=== PATIENT | female | born 1945 | race Caucasian/White ===

== ENCOUNTER 2017-01-09 21:16 | Emergency (ER) | payer MEDICARE, MEDICAID ==
--- NOTE | 2017-01-09 23:09 | C.PDOC ---
History Of Present Illness 71 year old female presents to the ED for evaluation of bilateral knee and neck pain that has developed gradually over the past week after sustaining mechanical fall. Patient tripped over step and kneeled down. Patient admits, pain is localized over L>R knees, worse with ambulation. Neck pain is localized , lateral neck, intermittent, aching. Patient denies head injury, LOC, syncope, severe headache, dizziness, visual changes, focal deficits, CP, SOB, abd. pain, UTI sx, saddle anesthesia, incontinence, denies obvious deformity/weakness/ sensory r vascular deficits to B/l LEs. Ambulate to ED for evaluation, not in nay apparent distress. FYI:Records from previous visits to ED review. Pt was seen here on 09/21/[address] C-spine performed with results (+) diffuse severe multi-level DJD. - HPI Time Seen by Provider: 01/09/17 21:58 Chief Complaint (Nursing): Trauma History Per: Patient History/Exam Limitations: no limitations Onset/Duration Of Symptoms: Days Location Of Injury: Right: Knee, Neck, Left: Knee, Neck Past Medical History Reviewed: Historical Data, Nursing Documentation, Vital Signs Vital Signs: Last Vital Signs Temp 98.1 F 01/09/17 21:38 Pulse 76 01/09/17 21:38 Resp 16 01/09/17 21:38 BP Pulse Ox 96 01/10/17 00:11 - Medical History PMH: Anxiety, Arthritis, Asthma, Back Problems, Diabetes, HTN, Hypercholesterolemia - [facility] Procedures MEASURE CARDIAC SAMPL & PRESSURE, BILATERAL, PERC (05/06/16) PLAIN RADIOGRAPHY OF LEFT HEART USING OTHER CONTRAST (05/06/16) PLAIN RADIOGRAPHY OF MULT COR ART USING OTH CONTRAST (05/06/16) Family History: States: Unknown Family Hx - Social History Hx Tobacco Use: No Hx Alcohol Use: No Hx Substance Use: No - Immunization History Hx Tetanus Toxoid Vaccination: Yes Hx Influenza Vaccination: Yes Hx Pneumococcal Vaccination: No Review Of Systems Constitutional: Negative for: Fever, Chills Gastrointestinal: Negative for: Nausea, Vomiting Musculoskeletal: Positive for: Neck Pain, Other (bilateral knee pain ) Neurological: Negative for: Weakness, Confusion Physical Exam - Physical Exam Appears: Well, Non-toxic Skin: Normal Color, Warm, Dry, No Ecchymosis Head: Atraumatic, Normacephalic, No Swelling, No Abrasion Eye(s): bilateral: Normal Inspection Nose: Normal, No Discharge, No Deformity Oral Mucosa: Moist, No Drooling Throat: Normal Neck: Normal, Normal ROM, No Midline Cervical Tenderness, Paracervical Tenderness (diffuse B/L lateral cervical tenderness overlying trapezium muscle extend from occipital area down to B/L upper back. No midline tenderness. No skin changes.), No Step Off Deformity, No Supple Chest: Symmetrical, No Deformity, No Tenderness Cardiovascular: Rhythm Regular Respiratory: Normal Breath Sounds Gastrointestinal/Abdominal: Normal Exam, Soft, No Tenderness Back: Normal Inspection, No Vertebral Tenderness, Paraspinal Tenderness ( diffuse lumbar paraspinal tenderness.) Extremity: Normal ROM (mild discomfort on B/L knees flexion/extension.), Tenderness (L>R diffuse knee tenderness. NO palpable deformity, no ecchymoses, no edema.), No Pedal Edema, No Calf Tenderness, No Deformity, No Swelling Extremity: Bilateral: Atraumatic Neurological/Psych: Oriented x3, Normal Speech, Normal Motor, Normal Sensation, Normal Reflexes ED Course And Treatment O2 Sat by Pulse Oximetry: 96 Pulse Ox Interpretation: Normal - Other Rad C-spine X-Ray: Interpreted by Me, Viewed By Me Interpretation: (+)DJD, no acute fx or sublux Pelvis w/hips B/L X-Ray: Interpreted by Me, Viewed By Me Interpretation: (+)DJD, no acute fx or dislocation B/L knees X-Ray: Interpreted by Me, Viewed By Me Interpretation: (+) L>R DJD, no acute fx or dislocation Progress Note: On re-evaluation, pt is afebrile, hemodynamicaly stable. Non- toxic. AMbulatory in ED with stable gait. Head: AT/NC. Neck: (-) midline tenderness. Lungs: CTA B/L, BS equal B/L. ABd: benign. B/L LEs: Exam c/w B/L knees contusion, no deformiyt, no neurovascular deficits. Neurologicaly intact. Imaging review and appears without acute abnoramlities. Rey wrap applied to left knee. Pt advised. ref. to F/U with PMD and Ortho in 2-3 days for re-eavl. return if any new changes. Disposition Counseled Patient/Family Regarding: Studies Performed, Diagnosis, Need For Followup, Rx Given - Disposition Referrals: [facility] [Outside] Inocencio Vazquez MD [Staff Provider] - Disposition Time: 23:20 Condition: STABLE Additional Instructions: Rey wrap to left knee Light duty to B/L knees, avoid prolong walking Take pain medication as prescribed Follow up with Orthopedist in 2-3 days for re-evaluation. Return to ED if any worsening or new changes. Instructions: Knee Sprain (ED), Cervical Sprain (ED), Fall Prevention for Older Adults (ED) Print Language: CZECH - Clinical Impression Clinical Impression: Cervical strain, Knee contusion, Fall - Scribe Statement The provider has reviewed the documentation as recorded by the Scribe Gayathri Bergeron All medical record entries made by the Scribe were at my direction and personally dictated by me. I have reviewed the chart and agree that the record accurately reflects my personal performance of the history, physical exam, medical decision making, and the department course for this patient. I have also personally directed, reviewed, and agree with the discharge instructions and disposition.
[2017-01-10 00:37] VITALS: BP 137/77; PULSE 70; RESP 20; TEMP 97.9; O2SAT 100
--- NOTE | 2017-01-10 17:13 | RAD ---
PROCEDURE: Bilateral knees dated 01/09/2017. HISTORY: injury COMPARISON: See below TECHNIQUE: Three views of the right and left knees performed. Comparison made with prior radiographs right knee dated 11/04/2015 FINDINGS: The current study reveals no evidence of acute displaced fracture nor dislocation. The osseous structures appear intact. Moderate to significant tricompartmental degenerative joint changes are present most notably affecting the medial and patellofemoral compartments. There are also calcifications seen within the joint space margins sized consistent with chondrocalcinosis ; rule out CPPD. Questionable trace suprapatellar joint effusion. Vascular calcifications are again noted. IMPRESSION: No acute fractures. Moderate to significant tricompartmental degenerative joint changes most notably affecting the medial and patellofemoral compartments. Chondrocalcinosis; rule out CPPD
--- NOTE | 2017-01-10 17:27 | RAD ---
PROCEDURE: Pelvis and bilateral hips dated 01/09/2017 HISTORY: injury COMPARISON: Comparison made with CT scan of the abdomen and pelvis dated 08/08/2016 which image the pelvis and both hips in 3 planes. TECHNIQUE: AP view of the pelvis and both hips as well as frogleg lateral views of the right and left hips performed. FINDINGS: Current study reveals no evidence of acute displaced fracture nor dislocation. The osseous structures are intact. Degenerative changes both hip joints. Calcified fibroid again seen overlying the left aspect of the pelvis. Note made of heterotopic bone changes adjacent to the at inferior margins of both inferior pubic rami left more exuberant than the right. Multilevel degenerative spondylosis of the lumbar spine. IMPRESSION: No acute fracture seen. Degenerative changes both hips of if symptoms persist or occult fracture suspected clinically recommend followup CT scan for further evaluation.
--- NOTE | 2017-01-10 17:47 | RAD ---
PROCEDURE: Cervical spine dated 01/09/2017 HISTORY: injury COMPARISON: TECHNIQUE: Multiple views of the cervical spine performed. Examination is somewhat limited due to incomplete visualization of the C7 segment and poor visualization of the C7-T1 and to a lesser degree C6-C7 disc space levels. FINDINGS: Current study reveals no acute compression fractures no retropulsed fragments. Minor chronic anterior stature loss felt to be related to degenerative spondylosis . There is also mild reversal of the normal cervical lordosis As mentioned above, multilevel degenerative spondylosis most notably affecting C6-C7 and C5-C6 levels include disc space narrowing, endplate eburnation with medium-sized anterolateral and tiny posterior osteophyte formation. . Prevertebral soft tissues unremarkable. IMPRESSION: Limited study. No acute fracture seen. Multilevel degenerative spondylosis as above
== END 2017-01-10 00:37 | disposition home or self-care (01) ==
LOC: C.ER 21:16
DX: S80.02XA Contusion of left knee, initial encounter (principal); S80.01XA Contusion of right knee, initial encounter; S16.1XXA Strain of muscle, fascia and tendon at neck level, initial encounter; W01.0XXA Fall on same level from slipping, tripping and stumbling without subsequent striking against object, initial encounter

== ENCOUNTER 2017-01-19 18:50 | Emergency (ER) | payer MEDICARE, MEDICAID ==
[2017-01-19 18:53] VITALS: BMI 36.6
[2017-01-19 18:57] VITALS: TEMP 98.1
--- NOTE | 2017-01-19 19:50 | C.PDOC ---
History Of Present Illness Patient presents to ER with a complaint of a dull aching neck and chest pain after having dental work done in the morning. Denies any fever, chill, nausea, or vomiting or shortness of breath. Time Seen by Provider: 01/19/17 19:49 Chief Complaint (Nursing): ENT Problem History Per: Patient History/Exam Limitations: no limitations Onset/Duration Of Symptoms: Hrs Current Symptoms Are (Timing): Still Present Severity: Mild Pain Scale Rating Of: 3 Location: neck Reports Recently: Seen In ED Recent travel outside of the [place]: No Additional History Per: Patient Past Medical History Reviewed: Historical Data, Nursing Documentation, Vital Signs Vital Signs: Last Vital Signs Temp 98.1 F 01/19/17 18:54 Pulse 71 01/19/17 20:54 Resp 17 01/19/17 20:54 BP 152/50 H 01/19/17 20:54 Pulse Ox 100 01/19/17 20:54 - Medical History PMH: Anxiety, Arthritis, Asthma, Back Problems, Diabetes, HTN, Hypercholesterolemia - [facility] Procedures MEASURE CARDIAC SAMPL & PRESSURE, BILATERAL, PERC (05/06/16) PLAIN RADIOGRAPHY OF LEFT HEART USING OTHER CONTRAST (05/06/16) PLAIN RADIOGRAPHY OF MULT COR ART USING OTH CONTRAST (05/06/16) Family History: States: No Known Family Hx - Social History Hx Tobacco Use: No Hx Alcohol Use: No Hx Substance Use: No - Immunization History Hx Tetanus Toxoid Vaccination: No Hx Influenza Vaccination: No Hx Pneumococcal Vaccination: No Review Of Systems Constitutional: Negative for: Fever, Chills ENT: Positive for: Other (Neck pain). Negative for: Throat Swelling Cardiovascular: Positive for: Chest Pain (dull aching chest discomfort) Gastrointestinal: Negative for: Nausea, Vomiting Musculoskeletal: Positive for: Neck Pain. Negative for: Back Pain Skin: Negative for: Rash, Lesions, Jaundice, Bruising Neurological: Negative for: Weakness Psych: Negative for: Anxiety Physical Exam - Physical Exam Appears: Well, Non-toxic Skin: Warm, Dry Oral Mucosa: Moist Teeth: Other (missing b/l pre and molars.) Gingiva: No Erythema, No Swelling, No Tender, No Bleeding, No Abscess Neck: Supple Chest: Symmetrical Cardiovascular: Rhythm Regular Respiratory: No Rales, No Rhonchi, No Wheezing Gastrointestinal/Abdominal: Soft, No Tenderness, Other (Obese) Back: Normal Inspection Extremity: Normal ROM Extremity: Bilateral: Atraumatic, Normal Color And Temperature Neurological/Psych: Oriented x3, Normal Speech, Normal Cognition Gait: Steady ED Course And Treatment - Laboratory Results Result Diagrams: 01/19/17 20:32 01/19/17 20:32 ECG: Interpreted By Me, Viewed By Me ECG Rhythm: Sinus Rhythm (70), Nonspecific Changes O2 Sat by Pulse Oximetry: 98 Pulse Ox Interpretation: Normal - Radiology CXR Interpretation: Yes: Other (unchnaged from 09/21/16). No: Infiltrates, Fracture, Pnemothorax Progress Note: EKG, blood work, chest x-ray, and urinalysis ordered. Ecotrin PO administered. 9:20 PM Upon provider reevaluation patient is feeling better, is medically stable, and requires no further treatment in the ED at this time. Patient will be discharged home with Rx for naproxyn . Counseling was provided and all questions were answered regarding diagnosis and need for follow up with the referred clinic. There is agreement to discharge plan. Return if symptoms persist or worsen. Reevaluation Time: 21:18 Reassessment Condition: Improved Disposition Counseled Patient/Family Regarding: Studies Performed, Diagnosis, Need For Followup - Disposition Referrals: Mark Osborn MD [Staff Provider] - Disposition: HOME/ ROUTINE Disposition Time: 19:50 Condition: FAIR Prescriptions: Naproxen [Naprosyn] 1 tab PO BID PRN #25 tab PRN Reason: Pain Instructions: Costochondritis (ED), Cervical Strain (DC) Print Language: BERMUDIAN - Clinical Impression Clinical Impression: Neck pain, Costochondral chest pain - Scribe Statement The provider has reviewed the documentation as recorded by the Scribkevin [place] All medical record entries made by the Julesibkevin were at my direction and personally dictated by me. I have reviewed the chart and agree that the record accurately reflects my personal performance of the history, physical exam, medical decision making, and the department course for this patient. I have also personally directed, reviewed, and agree with the discharge instructions and disposition.
[2017-01-19] MEDS ORDERED: Aspirin 325 mg EC Tablets PO STA (19:52)
[2017-01-19 20:35] LABS: BASO % 0.2 % (0.0-2.0); EOS # 0.1 K/uL (0.0-0.7); EOS % 0.5 % (0.0-4.0); HEMATOCRIT 33.3 % (34.0-47.0); LYMPH # 1.6 K/uL (1.0-4.3); LYMPH % 16.8 % (20.0-40.0); MEAN CELL VOLUME 82.8 fL (81.0-99.0); MEAN CORPUSCULAR HEMOGLOBIN 27.7 pg (27.0-31.0); MEAN CORPUSCULAR HGB CONC 33.4 g/dL (33.0-37.0); MEAN PLATELET VOLUME 7.2 fL (7.2-11.7); MONO # 0.5 K/uL (0.0-0.8); MONO % 5.4 % (0.0-10.0); RED CELL DISTRIBUTION WIDTH 13.5 % (11.5-14.5); WHITE BLOOD COUNT 9.8 K/uL (4.8-10.8)
[2017-01-19] MEDS ORDERED: Aspirin 325 mg EC Tablets PO ONE (20:36)
[2017-01-19 20:43] LABS: CHLORIDE 100 mmol/L (98-107); SODIUM 143 mmol/L (132-148)
[2017-01-19 20:45] LABS: BILIRUBIN,TOTAL 0.2 mg/dL (0.2-1.3); GFR AFRICAN-AMERICAN > 60
[2017-01-19 20:46] LABS: ALB/GLOB RATIO 1.3 (1.0-2.1); ALKALINE PHOSPHATASE 62 U/L (38-126); ALT/SGPT 17 U/L (9-52); AST/SGOT 26 U/L (14-36); BLOOD UREA NITROGEN 22 mg/dL (7-17); CARBON DIOXIDE 26 mmol/L (22-30); GLUCOSE,RANDOM 70 mg/dL (65-105); TOTAL PROTEIN 7.6 g/dL (6.3-8.3)
[2017-01-19 20:47] LABS: CALCIUM 9.3 mg/dl (8.6-10.4)
[2017-01-19 20:52] LABS: RBC URINE < 1 /hpf (0-3); URINE BACTERIA RARE (<OCC); URINE BILIRUBIN NEGATIVE (NEGATIVE); URINE BLOOD NEGATIVE (NEGATIVE); URINE COLOR Straw (YELLOW); URINE GLUCOSE (UA) NORMAL (Normal); URINE KETONE NEGATIVE (NEGATIVE); URINE LEUKOCYTE ESTERASE NEG Leu/uL (Negative); URINE PROTEIN NEGATIVE (NEGATIVE); URINE UROBILINOGEN NORMAL mg/dL (0.2-1.0); WBC URINE < 1 /hpf (0-5)
[2017-01-19 21:34] VITALS: BP 137/40; PULSE 66; RESP 12; O2SAT 100
--- NOTE | 2017-01-20 09:19 | RAD ---
PROCEDURE: CHEST RADIOGRAPH, 1 VIEW HISTORY: chest pain COMPARISON: 09/21/2016 FINDINGS: LUNGS: Mild venous congestion. Patchy opacities in the medial right infrahilar region and left lung base. Upper lobe granulomatous changes. PLEURA: No pneumothorax or pleural fluid seen. CARDIOVASCULAR: Tortuous aorta. OSSEOUS STRUCTURES: Degenerative changes in the spine and shoulders with paravertebral osteophytes. Calcific tendinopathy of the proximal humeri. Suggestion of loose osteochondral bodies in the glenohumeral joint spaces. VISUALIZED UPPER ABDOMEN: Normal. OTHER FINDINGS: None. IMPRESSION: Mild venous congestion. Patchy opacities in the medial right infrahilar region and left lung base. Upper lobe granulomatous changes.
--- NOTE | 2017-01-20 10:45 | CARD ---
APPROVED REPORT EKG Measurement Heart [id number] <Conclusion> Normal sinus rhythm Normal ECG
== END 2017-01-19 21:33 | disposition home or self-care (01) ==
LOC: C.ER 18:50
DX: M54.2 Cervicalgia (principal); R07.89 Other chest pain
CPT/HCPCS: 71010; 80053; 81001; 84484; 85025; 85610; 85730; 93005; 96374; 99285; J1885

== ENCOUNTER 2017-02-11 17:29 | Emergency (ER) | payer MEDICARE, MEDICAID ==
[2017-02-11 17:29] VITALS: BMI 36.6
[2017-02-11 17:40] VITALS: BP 147/75; PULSE 76; RESP 15; TEMP 98.7; O2SAT 99
[2017-02-11] MEDS ORDERED: Bacitracin 500 Units/gm Oint Foilpak UD TOP ONE (17:57)
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
[2017-02-11] MEDS ORDERED: Bacitracin 500 Units/gm Oint Foilpak UD ONE (18:05)
== END 2017-02-11 18:31 | disposition home or self-care (01) ==
LOC: C.ER 17:29
DX: T23.262A Burn of second degree of back of left hand, initial encounter (principal); X15.8XXA Contact with other hot household appliances, initial encounter

== ENCOUNTER 2017-03-10 15:59 | Emergency (ER) | payer MEDICARE, MEDICAID ==
[2017-03-10 15:59] VITALS: BMI 36.6
[2017-03-10 16:12] VITALS: TEMP 98
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
--- NOTE | 2017-03-10 17:23 | C.PDOC ---
History Of Present Illness 72 yr old female presents to the ER with complaints of new onset of left leg pain for 1 day. Patient reports of left lower back pain which radiates to the left leg. States the pain is worse when she is getting up from a sitting position. Denies using any medication for the pain. No trauma, fall, abdominal pain, diarrhea, constipation, dysuria, incontinence, weakness or numbness. NEW ONSET L LEG PAIN SINCE YEST. L LOWER BACK RADIATION L LEG. WORSE WHEN GETTING UP TO STAND. NO TRAUMA. NO ASSOC WEAK. NO PAIN MEDS TRIED. EXAM ++STRAIGHT LEG TEST L LE. NEURO INTACT BACK LIMITED ROM DUE TO PAIN L HIP, ANKLE, FOOT NEG Time Seen by Provider: 03/10/17 16:31 Chief Complaint (Nursing): Trauma History Per: Patient History/Exam Limitations: no limitations Onset/Duration Of Symptoms: Sudden Onset (1 day) Past Medical History Reviewed: Historical Data, Nursing Documentation, Vital Signs Vital Signs: Last Vital Signs Temp 98.0 F 03/10/17 16:08 Pulse 74 03/10/17 16:08 Resp 18 03/10/17 16:08 BP 166/68 H 03/10/17 16:08 Pulse Ox 100 03/10/17 17:46 - Medical History PMH: Anxiety, Arthritis, Asthma, Back Problems, Diabetes, HTN, Hypercholesterolemia - [facility] Procedures MEASURE CARDIAC SAMPL & PRESSURE, BILATERAL, PERC (05/06/16) PLAIN RADIOGRAPHY OF LEFT HEART USING OTHER CONTRAST (05/06/16) PLAIN RADIOGRAPHY OF MULT COR ART USING OTH CONTRAST (05/06/16) Family History: States: No Known Family Hx - Social History Hx Tobacco Use: No Hx Alcohol Use: No Hx Substance Use: No - Immunization History Hx Tetanus Toxoid Vaccination: No Hx Influenza Vaccination: No Hx Pneumococcal Vaccination: No Review Of Systems Except As Marked, All Systems Reviewed And Found Negative. Gastrointestinal: Negative for: Abdominal Pain, Diarrhea, Constipation Genitourinary: Negative for: Dysuria, Incontinence Musculoskeletal: Positive for: Back Pain (Left lower back pain ), Leg Pain ( Left leg pain ) Neurological: Negative for: Weakness, Numbness Physical Exam - Physical Exam Appears: Well, Non-toxic, No Acute Distress Skin: Warm, Dry, No Rash Head: Atraumatic, Normacephalic Back: Straight Leg Raising (Left lower extremity ), Other ((+) Limited ROM due to pain ) Extremity: Normal ROM, Capillary Refill (<2), No Swelling Neurological/Psych: Oriented x3, Normal Speech, Normal Motor ED Course And Treatment O2 Sat by Pulse Oximetry: 100 - Other Rad X-Ray - Left Hip w/ Pelvis X-Ray: Viewed By Me, Read By Radiologist Interpretation: PROCEDURE: Left Hip X-ray Radiographs. The frontal view of the pelvis and frontal/frogleg lateral views of the left hip performed. . . Note examination is limited due to for penetration and visualization of fine bone detail. HISTORY: TRAUMA. COMPARISON: Comparison made with prior radiographs of pelvis and both hips 01/09/2017. FINDINGS: BONES: No definitive radiographic evidence displaced fracture nor dislocation. The left femoral head is appropriately located within the left acetabulum. JOINTS: Mild degenerative joint changes. SOFT TISSUES: Re- demonstrated is what probably represent calcified due to fibroid overlying the left true pelvis. There several small calcific densities again seen overlying the left pubic ramus. Few small calcifications inferior right ramus. . Vascular calcifications are again seen. OTHER FINDINGS: No acute fractures. DJD as described. If symptoms persist or occult fracture suspected clinically consider followup the CT scan and or MRI further evaluation. IMPRESSION: Normal left hip radiographs. X-Ray - Left Ankle X-Ray: Viewed By Me, Read By Radiologist Interpretation: PROCEDURE: Left Ankle Radiographs. HISTORY: TRAUMA. COMPARISON: None available. FINDINGS: BONES: Osseous demineralization limits evaluation for acute fracture lines. No acute displaced fracture. Calcaneal enthesophyte. Heel spur. Calcification at the Achilles insertion site. JOINTS: No dislocation. SOFT TISSUES: Soft tissue swelling. Vascular calcifications. No evidence of radiopaque foreign body. OTHER FINDINGS: None. IMPRESSION: Soft tissue swelling. No acute displaced fracture, dislocation, or significant joint effusion identified.If symptoms persist or if there is clinical concern, x-ray follow-up in 7-10 days should be considered. Osseous demineralization. Additional incidental findings as above. X-Ray - Left Foot X-Ray: Viewed By Me, Read By Radiologist Interpretation: PROCEDURE: Left Foot Radiographs. HISTORY: TRAUMA. COMPARISON: None available. FINDINGS: BONES: Osseous demineralization limits evaluation for acute fracture lines. Degenerative changes. No acute displaced fracture. JOINTS: No dislocation. SOFT TISSUES: Soft tissue swelling. Dense vascular calcifications. No evidence of radiopaque foreign body. OTHER FINDINGS: None. IMPRESSION: Osseous demineralization. Degenerative changes. No acute displaced fracture or dislocation identified. If symptoms persist or if there is continued clinical concern, x-ray follow-up in 7-10 days should be considered. Medical Decision Making Medical Decision Making: PLAN: * X-Ray - Left Ankle, Left Foot, Left Hip w/ Pelvis * Decadron PO * Flexeril PO * Motrin PO Disposition Counseled Patient/Family Regarding: Diagnosis, Need For Followup, Rx Given - Disposition Referrals: YOUR,PMD [Other] [facility] [Outside] Disposition: HOME/ ROUTINE Disposition Time: 17:26 Condition: IMPROVED Prescriptions: Acetaminophen [Tylenol 325mg tab] 650 mg PO Q6 #30 tab Cyclobenzaprine [Flexeril] 10 mg PO TID #15 tab Ibuprofen [Motrin] 400 mg PO QID #30 tab Lidocaine 5% [Lidoderm] 1 ea TD PRN PRN #10 patch PRN Reason: Pain, Moderate (4-7) Instructions: Lumbar Radiculopathy (ED) Print Language: MALAY - Clinical Impression Clinical Impression: Sciatic leg pain - Scribe Statement The provider has reviewed the documentation as recorded by the Alexis Garcia Provider Attestation: All medical record entries made by the Julesibkevin were at my direction and personally dictated by me. I have reviewed the chart and agree that the record accurately reflects my personal performance of the history, physical exam, medical decision making, and the department course for this patient. I have also personally directed, reviewed, and agree with the discharge instructions and disposition.
[2017-03-10] MEDS ORDERED: Lidocaine 5% Patch TD STA (17:25)
--- NOTE | 2017-03-10 17:33 | RAD ---
PROCEDURE: Left Hip X-ray Radiographs. The frontal view of the pelvis and frontal/frogleg lateral views of the left hip performed. . . Note examination is limited due to for penetration and visualization of fine bone detail. HISTORY: TRAUMA COMPARISON: Comparison made with prior radiographs of pelvis and both hips 01/09/2017 FINDINGS: BONES: No definitive radiographic evidence displaced fracture nor dislocation. The left femoral head is appropriately located within the left acetabulum. JOINTS: Mild degenerative joint changes. SOFT TISSUES: Re- demonstrated is what probably represent calcified due to fibroid overlying the left true pelvis. There several small calcific densities again seen overlying the left pubic ramus. Few small calcifications inferior right ramus. . Vascular calcifications are again seen. OTHER FINDINGS: No acute fractures. DJD as described. If symptoms persist or occult fracture suspected clinically consider followup the CT scan and or MRI further evaluation. IMPRESSION: Normal left hip radiographs.
[2017-03-10] MEDS ORDERED: Lidocaine 5% Patch TD ONE (18:11)
--- NOTE | 2017-03-10 18:11 | RAD ---
PROCEDURE: Left Ankle Radiographs. HISTORY: TRAUMA COMPARISON: None available. FINDINGS: BONES: Osseous demineralization limits evaluation for acute fracture lines. No acute displaced fracture. Calcaneal enthesophyte. Heel spur. Calcification at the Achilles insertion site. JOINTS: No dislocation. SOFT TISSUES: Soft tissue swelling. Vascular calcifications. No evidence of radiopaque foreign body. OTHER FINDINGS: None. IMPRESSION: Soft tissue swelling. No acute displaced fracture, dislocation, or significant joint effusion identified.If symptoms persist or if there is clinical concern, x-ray follow-up in 7-10 days should be considered. Osseous demineralization. Additional incidental findings as above.
--- NOTE | 2017-03-10 18:12 | RAD ---
PROCEDURE: Left Foot Radiographs. HISTORY: TRAUMA COMPARISON: None available. FINDINGS: BONES: Osseous demineralization limits evaluation for acute fracture lines. Degenerative changes. No acute displaced fracture. JOINTS: No dislocation. SOFT TISSUES: Soft tissue swelling. Dense vascular calcifications. No evidence of radiopaque foreign body. OTHER FINDINGS: None. IMPRESSION: Osseous demineralization. Degenerative changes. No acute displaced fracture or dislocation identified. If symptoms persist or if there is continued clinical concern, x-ray follow-up in 7-10 days should be considered.
[2017-03-10 18:43] VITALS: BP 135/84; PULSE 78; RESP 16; O2SAT 98
== END 2017-03-10 18:43 | disposition home or self-care (01) ==
LOC: C.ER 15:59
DX: M54.42 Lumbago with sciatica, left side (principal)

== ENCOUNTER 2017-03-17 02:28 | Inpatient (IN) | payer MEDICARE, MEDICAID ==
--- NOTE | 2017-03-17 02:35 | C.PDOC ---
History Of Present Illness A 72 y/o female brought in by EMS for low blood sugar that was taken from home [employer]. Pt notes that she did not feel well and could not get up from the toilet. Pt had a blood sugar of 40 and was given an amp of D50. Pt denies fever, chills , nausea, vomiting, LOC, or dizziness. Time Seen by Provider: 03/17/17 02:34 History Per: Patient History/Exam Limitations: no limitations Onset/Duration Of Symptoms: Hrs Current Symptoms Are (Timing): Still Present Severity: Mild Pain Scale Rating Of: 2 Current Diabetic Medications: Oral Medication Causative (Exacerbating) Factor(s): Other Associated Infectious Symptoms: denies: Cough, Sore Throat Treatment Prior To Provider Evaluation: D50W Given Response To Treatment: Good Response Recent travel outside of the [place]: No Additional History Per: Patient Past Medical History Reviewed: Historical Data, Nursing Documentation, Vital Signs Vital Signs: Last Vital Signs Temp 97.5 F L 03/17/17 02:40 Pulse 71 03/17/17 03:37 Resp 16 03/17/17 03:37 BP 142/55 L 03/17/17 03:37 Pulse Ox 98 03/17/17 05:22 - Medical History PMH: Anxiety, Arthritis, Asthma, Back Problems, Diabetes, HTN, Hypercholesterolemia Denies: Chronic Kidney Disease - [facility] Procedures MEASURE CARDIAC SAMPL & PRESSURE, BILATERAL, PERC (05/06/16) PLAIN RADIOGRAPHY OF LEFT HEART USING OTHER CONTRAST (05/06/16) PLAIN RADIOGRAPHY OF MULT COR ART USING OTH CONTRAST (05/06/16) Family History: States: No Known Family Hx - Social History Hx Tobacco Use: No Hx Alcohol Use: No Hx Substance Use: No - Immunization History Hx Tetanus Toxoid Vaccination: No Hx Influenza Vaccination: No Hx Pneumococcal Vaccination: No Review Of Systems Constitutional: Positive for: Other (Low blood sugar). Negative for: Fever, Chills ENT: Negative for: Throat Pain Cardiovascular: Negative for: Chest Pain, Palpitations Respiratory: Negative for: Shortness of Breath Gastrointestinal: Negative for: Nausea, Vomiting Genitourinary: Negative for: Dysuria Musculoskeletal: Positive for: Arm Pain Skin: Negative for: Rash, Lesions, Jaundice Neurological: Negative for: Weakness, Dizziness, Other (LOC) Psych: Negative for: Anxiety Physical Exam - Physical Exam Appears: Non-toxic, No Acute Distress Skin: Warm, Dry Head: Normacephalic Eye(s): bilateral: Normal Inspection Oral Mucosa: Moist Neck: Trachea Midline, Supple Chest: Symmetrical Cardiovascular: Rhythm Regular Respiratory: No Rales, No Rhonchi, No Wheezing Gastrointestinal/Abdominal: Soft, No Tenderness Back: Normal Inspection Extremity: Normal ROM Extremity: Bilateral: Atraumatic, Normal ROM Neurological/Psych: Oriented x3 (Back to baseline), Normal Speech, Normal Cognition Gait: Steady ED Course And Treatment - Laboratory Results Result Diagrams: 03/17/17 02:56 03/17/17 02:56 ECG: Interpreted By Me, Viewed By Me ECG Rhythm: Sinus Rhythm (81), Nonspecific Changes O2 Sat by Pulse Oximetry: 98 (RA) Pulse Ox Interpretation: Normal - Radiology CXR: Interpreted by Me, Viewed By Me CXR Interpretation: No: Infiltrates, Fracture, Pnemothorax - CT Scan/US CT Head w/o Contrast Other Rad Studies (CT/US): Interpreted By Me, Read By Radiologist CT/US Interpretation: EXAM: CT Head Without Intravenous Contrast. CLINICAL HISTORY: 72 years old, female; Pain; Headache and other: Weakness; Patient HX: 10-13-16. TECHNIQUE: Axial computed tomography images of the head/brain without intravenous contrast. This CT exam. was performed using one or more of the following dose reduction techniques: automated exposure. control, adjustment of the mA and/or kV according to patient size, and/or use of iterative. reconstruction technique. COMPARISON: CT - HEAD W/O CONTRAST 2015 8:49:44 PM. FINDINGS: Brain: Mild atrophy. No intracranial hemorrhage. No mass. Minimal decreased attenuation within. periventricular white matter. No definite edema. Ventricles: No hydrocephalus. Cavum septum pellucidum and vergae. Bones/joints: No acute fracture. Calvarial osteoma. Soft tissues: Unremarkable. Vasculature: Atherosclerotic disease of intracranial arteries. Sinuses: No acute sinusitis. Mastoid air cells: No mastoid effusion. Orbits: Unremarkable as visualized. IMPRESSION: 1. Nonspecific white matter changes. Acute infarction may be CT occult within first 24 hours. If a. focal deficit persists, consider followup CT or MRI for further evaluation. 2. Incidental/non -acute findings are described above. Reevaluation Time: 04:34 Reassessment Condition: Improved Critical Care Time - Critical Care Note Total Time (in mins): 30 Documented critical care: time excludes all time spent performing seperately billable procedures. NIHSS Stroke Scale - Date/Time Evaluation Performed Date Performed: 03/17/17 Time Performed: 02:36 When Was NIHSS Performed: Baseline - How Severe is the Stoke Level of Consciousness: 0=Alert LOC to Questions: 0=Both comments correct LOC to commands: 0=Obeys both correctly Best Gaze: 0=Normal Visual: 0=No visual loss Facial: 0=Normal Motor Arm - Left: 0=No drift Motor Arm - Right: 0=No drift Motor Leg - Left: 0=No drift Motor Leg - Right: 0=No drift Limb Ataxia: 0=Absent Sensory: 0=Normal Best Language: 0=No aphasia Dysarthia: 0=Normal articulation Extinction & Inattention (Neglect): 0=Normal, no object Score: 0 Severity Of Stroke: 0= No Stroke Disposition Discussed With DrRenata: Ayaz Holder Comment: accepted the pt on his service and took over the care at 5:38AM Doctor Will See Patient In The: Hospital Counseled Patient/Family Regarding: Studies Performed, Diagnosis - Disposition Referrals: Non [facility] Provider, [Primary Care Provider] - Disposition: HOSPITALIZED Disposition Time: 02:34 Condition: FAIR - Clinical Impression Clinical Impression: Hypoglycemia - Scribe Statement The provider has reviewed the documentation as recorded by the Scribe Diana flaherty All medical record entries made by the Scribe were at my direction and personally dictated by me. I have reviewed the chart and agree that the record accurately reflects my personal performance of the history, physical exam, medical decision making, and the department course for this patient. I have also personally directed, reviewed, and agree with the discharge instructions and disposition. Decision To Admit - Pt Status Changed To: Hospital Disposition Of: Observation - . Bed Request Type: Regular Admitting Physician: Ayaz Holder Patient Diagnosis: Hypoglycemia
[2017-03-17 02:43] VITALS: BMI 28.3
[2017-03-17 03:00] LABS: BASO % 0.3 % (0.0-2.0); EOS # 0.1 K/uL (0.0-0.7); EOS % 0.8 % (0.0-4.0); HEMATOCRIT 31.7 % (34.0-47.0); LYMPH % 12.8 % (20.0-40.0); MEAN CELL VOLUME 82.9 fL (81.0-99.0); MEAN CORPUSCULAR HEMOGLOBIN 27.3 pg (27.0-31.0); MEAN PLATELET VOLUME 7.5 fL (7.2-11.7); MONO # 0.6 K/uL (0.0-0.8); MONO % 7.3 % (0.0-10.0); RED CELL DISTRIBUTION WIDTH 13.8 % (11.5-14.5); WHITE BLOOD COUNT 7.9 K/uL (4.8-10.8)
[2017-03-17 03:03] LABS: CHLORIDE 99 mmol/L (98-107); SODIUM 137 mmol/L (132-148)
[2017-03-17 03:04] LABS: POTASSIUM 3.9 mmol/L (3.6-5.2)
[2017-03-17 03:06] LABS: ALB/GLOB RATIO 1.3 (1.0-2.1); ALKALINE PHOSPHATASE 69 U/L (38-126); AST/SGOT 30 U/L (14-36); BILIRUBIN,TOTAL 0.5 mg/dL (0.2-1.3); BLOOD UREA NITROGEN 24 mg/dL (7-17); CARBON DIOXIDE 27 mmol/L (22-30); GFR AFRICAN-AMERICAN > 60; TOTAL PROTEIN 6.9 g/dL (6.3-8.3)
[2017-03-17 03:07] LABS: ALT/SGPT 26 U/L (9-52); CALCIUM 9.1 mg/dl (8.6-10.4); GLUCOSE,RANDOM 127 mg/dL (65-105)
--- NOTE | 2017-03-17 03:29 | CT ---
EXAM: CT Head Without Intravenous Contrast CLINICAL HISTORY: 72 years old, female; Pain; Headache and other: Weakness; Patient HX: 08-06-16 TECHNIQUE: Axial computed tomography images of the head/brain without intravenous contrast. This CT exam was performed using one or more of the following dose reduction techniques: automated exposure control, adjustment of the mA and/or kV according to patient size, and/or use of iterative reconstruction technique. COMPARISON: CT - HEAD W/O CONTRAST 05/04/2016 8:49:44 PM FINDINGS: Brain: Mild atrophy. No intracranial hemorrhage. No mass. Minimal decreased attenuation within periventricular white matter. No definite edema. Ventricles: No hydrocephalus. Cavum septum pellucidum and vergae. Bones/joints: No acute fracture. Calvarial osteoma. Soft tissues: Unremarkable. Vasculature: Atherosclerotic disease of intracranial arteries. Sinuses: No acute sinusitis. Mastoid air cells: No mastoid effusion. Orbits: Unremarkable as visualized. IMPRESSION: 1. Nonspecific white matter changes. Acute infarction may be CT occult within first 24 hours. If a focal deficit persists, consider followup CT or MRI for further evaluation. 2. Incidental/non-acute findings are described above.
[2017-03-17 04:31] LABS: RBC URINE 1 /hpf (0-3); URINE BILIRUBIN NEGATIVE (NEGATIVE); URINE BLOOD NEGATIVE (NEGATIVE); URINE COLOR Straw (YELLOW); URINE GLUCOSE (UA) 1+ mg/dL (Normal); URINE KETONE NEGATIVE (NEGATIVE); URINE LEUKOCYTE ESTERASE 1+ Leu/uL (Negative); URINE PROTEIN NEGATIVE (NEGATIVE); URINE UROBILINOGEN NORMAL mg/dL (0.2-1.0); WBC URINE 7 /hpf (0-5)
[2017-03-17] MEDS ORDERED: Dextrose 50% SYRINGE Inj (50 ml) IV STA (04:45)
[2017-03-17] MEDS ORDERED: Dextrose 50% SYRINGE Inj (50 ml) ONE (04:48)
--- NOTE | 2017-03-17 08:31 | RAD ---
PROCEDURE: CHEST RADIOGRAPH, 1 VIEW HISTORY: Diabetic COMPARISON: None available. FINDINGS: LUNGS: Mild venous congestion. PLEURA: No pneumothorax or pleural fluid seen. CARDIOVASCULAR: Normal. OSSEOUS STRUCTURES: Degenerative changes in the spine and shoulders. VISUALIZED UPPER ABDOMEN: Normal. OTHER FINDINGS: None. IMPRESSION: Mild venous congestion.
[2017-03-17] MEDS: Enoxaparin 40 mg Syringe SC SCH (11:44)
[2017-03-17] MEDS: Pantoprazole 40 mg EC Tab PO SCH (11:44)
--- NOTE | 2017-03-17 11:47 | CP.PCM.PN ---
Subjective - Date & Time of Evaluation Date of Evaluation: 03/17/17 Time of Evaluation: 09:00 - Subjective Subjective: PGY2 on medicine Dr. Holder service: Pt seen and examined at bedside this morning. No acute events overnight per RN. Pt complains left foot pain when raising her left leg for several months. Objective - Vital Signs/Intake and Output Vital Signs (last 24 hours): Temp Pulse Resp BP Pulse Ox 98.1 F 80 18 144/63 100 03/17/17 08:18 03/17/17 08:18 03/17/17 08:18 03/17/17 08:18 03/17/17 08:18 - Medications Medications: Current Medications Enoxaparin Sodium (Lovenox) 40 mg SC DAILY [facility] Dextrose (Dextrose 5% In Water) 500 mls @ 60 mls/hr IV .[id number] KIMMIE Stop: 03/17/17 14:49 Last Admin: 03/17/17 07:07 Dose: 60 mls/hr Pantoprazole Sodium (Protonix Ec Tab) 40 mg PO DAILY [facility] - Constitutional Appears: Non-toxic, No Acute Distress - Head Exam Head Exam: NORMAL INSPECTION, NORMOCEPHALIC - Eye Exam Eye Exam: Normal appearance Pupil Exam: NORMAL ACCOMODATION - Respiratory Exam Respiratory Exam: Clear to Ausculation Bilateral, NORMAL BREATHING PATTERN - Cardiovascular Exam Cardiovascular Exam: REGULAR RHYTHM, +S1, +S2. absent: Gallop, Rubs - GI/Abdominal Exam GI & Abdominal Exam: Soft, Normal Bowel Sounds - Neurological Exam Neurological Exam: Alert, Awake, Oriented x3 - Psychiatric Exam Psychiatric exam: Normal Mood - Skin Skin Exam: Intact Assessment and Plan - Assessment and Plan (Free Text) Assessment: Weakness NIHSS score [address] head negative for acute etiologies per report. Likely secondary to hypoglycemia episode. Hypoglycemia Blood sugar was 40 on admission. One amp of D50 was given. Home med Janumet 50-1000mg on hold. D5 @ 60 ml/hr. +LE on UA Repeat UA. Urine culture. Prophylactic measure Protonix, Lovenox, SCD.
[2017-03-17 15:50] LABS: RBC URINE < 1 /hpf (0-3); URINE BACTERIA RARE (<OCC); URINE BILIRUBIN NEGATIVE (NEGATIVE); URINE BLOOD NEGATIVE (NEGATIVE); URINE COLOR Colorless (YELLOW); URINE GLUCOSE (UA) NORMAL (Normal); URINE KETONE NEGATIVE (NEGATIVE); URINE LEUKOCYTE ESTERASE NEG Leu/uL (Negative); URINE PROTEIN NEGATIVE (NEGATIVE); URINE UROBILINOGEN NORMAL mg/dL (0.2-1.0); WBC URINE < 1 /hpf (0-5)
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
[2017-03-17] MEDS: (Novolog) Insulin Aspart, Recombinant 100 u/ml 10 ml vial SC SCH (21:51)
[2017-03-18 07:30] LABS: BASO % 0.3 % (0.0-2.0); EOS # 0.1 K/uL (0.0-0.7); EOS % 1.9 % (0.0-4.0); HEMATOCRIT 31.8 % (34.0-47.0); LYMPH # 1.3 K/uL (1.0-4.3); LYMPH % 18.2 % (20.0-40.0); MEAN CELL VOLUME 82.9 fL (81.0-99.0); MEAN CORPUSCULAR HEMOGLOBIN 27.2 pg (27.0-31.0); MEAN CORPUSCULAR HGB CONC 32.9 g/dL (33.0-37.0); MEAN PLATELET VOLUME 7.5 fL (7.2-11.7); MONO # 0.8 K/uL (0.0-0.8); RED CELL DISTRIBUTION WIDTH 13.8 % (11.5-14.5); WHITE BLOOD COUNT 7.1 K/uL (4.8-10.8)
[2017-03-18 08:01] LABS: CHLORIDE 98 mmol/L (98-107); SODIUM 137 mmol/L (132-148)
[2017-03-18 08:02] LABS: POTASSIUM 4.8 mmol/L (3.6-5.2)
[2017-03-18 08:04] LABS: ALB/GLOB RATIO 1.2 (1.0-2.1); ALKALINE PHOSPHATASE 69 U/L (38-126); AST/SGOT 19 U/L (14-36); BILIRUBIN,TOTAL 0.5 mg/dL (0.2-1.3); BLOOD UREA NITROGEN 22 mg/dL (7-17); CARBON DIOXIDE 30 mmol/L (22-30); GFR AFRICAN-AMERICAN > 60; GLUCOSE,RANDOM 150 mg/dL (65-105); TOTAL PROTEIN 6.8 g/dL (6.3-8.3)
[2017-03-18 08:05] LABS: ALT/SGPT 19 U/L (9-52); CALCIUM 9.1 mg/dl (8.6-10.4)
[2017-03-18] MEDS: (Novolog) Insulin Aspart, Recombinant 100 u/ml 10 ml vial SC SCH ×4 (08:51→21:18)
[2017-03-18] MEDS ORDERED: Pneumococcal 23-Valent Vaccine IM ONE (10:00)
[2017-03-18] MEDS: Enoxaparin 40 mg Syringe SC SCH (10:25)
[2017-03-18] MEDS: Pantoprazole 40 mg EC Tab PO SCH (10:25)
--- NOTE | 2017-03-18 15:50 | CP.PCM.PN ---
Addendum entered and electronically signed by Edmund Rodas DO 03/18/17 16:32: Patient s/p total hysterectomy, will cancel pelvic US. Original Note: <Edmund Rodas - Last Filed: 03/18/17 15:46> Subjective - Date & Time of Evaluation Date of Evaluation: 03/18/17 Time of Evaluation: 09:00 - Subjective Subjective: PGY2 on medicine Dr. Holder service: Pt seen and examined at bedside this morning. Pt complains persistent lower abdominal pain and pelvic pain since she fell last year. She had negative xray and CT for acute etiologies. CT however found possible calcified fibroids. Pt otherwise have no other complaints. Physical therapy recommended TCU. Objective - Vital Signs/Intake and Output Vital Signs (last 24 hours): Temp Pulse Resp BP Pulse Ox 98.3 F 76 19 131/72 97 03/18/17 08:00 03/18/17 11:23 03/18/17 08:00 03/18/17 11:23 03/18/17 08:00 Intake and Output: 03/18/17 03/18/17 06:59 18:59 Intake Total 480 Balance 480 - Medications Medications: Current Medications Acetaminophen (Tylenol 325mg Tab) 650 mg PO Q6 PRN PRN Reason: moderate pain Last Admin: 03/18/17 08:51 Dose: 650 mg Enoxaparin Sodium (Lovenox) 40 mg SC DAILY [facility] Last Admin: 03/18/17 10:25 Dose: 40 mg Insulin Aspart (Novolog) 0 unit SC ACHS [facility] PRN Reason: Protocol Last Admin: 03/18/17 13:55 Dose: 2 unit Pantoprazole Sodium (Protonix Ec Tab) 40 mg PO DAILY [facility] Last Admin: 03/18/17 10:25 Dose: 40 mg - Labs Labs: 03/18/17 07:22 03/18/17 07:22 - Constitutional Appears: Non-toxic, No Acute Distress - Head Exam Head Exam: NORMAL INSPECTION, NORMOCEPHALIC - Eye Exam Eye Exam: Normal appearance - Respiratory Exam Respiratory Exam: Clear to Ausculation Bilateral, NORMAL BREATHING PATTERN - Cardiovascular Exam Cardiovascular Exam: REGULAR RHYTHM, +S1, +S2. absent: Gallop, Rubs - GI/Abdominal Exam GI & Abdominal Exam: Soft, Tenderness (lower abdominal, no rebound), Normal Bowel Sounds - Neurological Exam Neurological Exam: Alert, Awake, Oriented x3 - Psychiatric Exam Psychiatric exam: Normal Mood - Skin Skin Exam: Intact Assessment and Plan - Assessment and Plan (Free Text) Assessment: Weakness NIHSS score [address] head negative for acute etiologies per report. Likely secondary to hypoglycemia episode. Pending TCU. Hypoglycemia Blood sugar was 40 on admission. One amp of D50 was given. Home med Janumet 50-1000mg on hold. D5 @ 60 ml/hr. +LE on UA Repeat UA. Urine culture. Possible fibroid F/U pelvic ultrasound. Prophylactic measure Protonix, Lovenox, SCD. <Ayaz Holder S - Last Filed: 03/18/17 18:56> Objective - Vital Signs/Intake and Output Vital Signs (last 24 hours): Temp Pulse Resp BP Pulse Ox 98.1 F 80 20 148/68 95 03/18/17 18:16 03/18/17 18:16 03/18/17 18:16 03/18/17 18:16 03/18/17 18:16 Intake and Output: 03/18/17 03/18/17 06:59 18:59 Intake Total 240 Balance 240 - Medications Medications: Current Medications Acetaminophen (Tylenol 325mg Tab) 650 mg PO Q6 PRN PRN Reason: moderate pain Last Admin: 03/18/17 08:51 Dose: 650 mg Enoxaparin Sodium (Lovenox) 40 mg SC DAILY [facility] Last Admin: 03/18/17 10:25 Dose: 40 mg Insulin Aspart (Novolog) 0 unit SC ACHS [facility] PRN Reason: Protocol Last Admin: 03/18/17 17:24 Dose: Not Given Pantoprazole Sodium (Protonix Ec Tab) 40 mg PO DAILY [facility] Last Admin: 03/18/17 10:25 Dose: 40 mg Attending/Attestation - Attestation I have personally seen and examined this patient.: Yes I have fully participated in the care of the patient.: Yes I have reviewed all pertinent clinical information, including history, physical exam and plan: Yes Notes (Text): 03/18/17 18:56 caase seen and discusediwt resident adn staff holdantidiabetic med check bs possible dicharge rowdy as ordered may resume po med slowly followup withme tomrow or pmd in 48 hors
--- NOTE | 2017-03-18 23:05 | CARD ---
APPROVED REPORT EKG Measurement Heart [id number] <Conclusion> Normal sinus rhythm Normal ECG
[2017-03-19 06:59] LABS: BASO % 0.3 % (0.0-2.0); EOS # 0.1 K/uL (0.0-0.7); EOS % 2.2 % (0.0-4.0); HEMATOCRIT 30.3 % (34.0-47.0); LYMPH # 1.5 K/uL (1.0-4.3); LYMPH % 24.9 % (20.0-40.0); MEAN CELL VOLUME 82.3 fL (81.0-99.0); MEAN CORPUSCULAR HEMOGLOBIN 27.9 pg (27.0-31.0); MEAN CORPUSCULAR HGB CONC 33.9 g/dL (33.0-37.0); MEAN PLATELET VOLUME 7.5 fL (7.2-11.7); MONO # 0.8 K/uL (0.0-0.8); MONO % 13.7 % (0.0-10.0); RED CELL DISTRIBUTION WIDTH 13.9 % (11.5-14.5); WHITE BLOOD COUNT 6.1 K/uL (4.8-10.8)
[2017-03-19 07:18] LABS: CHLORIDE 99 mmol/L (98-107); POTASSIUM 4.3 mmol/L (3.6-5.2); SODIUM 138 mmol/L (132-148)
[2017-03-19 07:20] LABS: BILIRUBIN,TOTAL 0.4 mg/dL (0.2-1.3); GFR AFRICAN-AMERICAN > 60
[2017-03-19 07:21] LABS: ALB/GLOB RATIO 1.1 (1.0-2.1); ALKALINE PHOSPHATASE 70 U/L (38-126); ALT/SGPT 14 U/L (9-52); AST/SGOT 18 U/L (14-36); BLOOD UREA NITROGEN 25 mg/dL (7-17); CALCIUM 8.9 mg/dl (8.6-10.4); CARBON DIOXIDE 30 mmol/L (22-30); GLUCOSE,RANDOM 156 mg/dL (65-105); TOTAL PROTEIN 6.8 g/dL (6.3-8.3)
[2017-03-19] MEDS: (Novolog) Insulin Aspart, Recombinant 100 u/ml 10 ml vial SC SCH ×4 (08:11→22:14)
--- NOTE | 2017-03-19 10:23 | CP.PCM.PN ---
<JacquesRamsey - Last Filed: 03/19/17 11:26> Subjective - Date & Time of Evaluation Date of Evaluation: 03/19/17 Time of Evaluation: 07:45 - Subjective Subjective: Medicine Note- Dr. Holder's service Patient was seen and examined at bedside. Patient reports no acute complaints at this time. Patient is aware and understands she will be going to a TCU in a few days. No events overnight, per nursing. Objective - Vital Signs/Intake and Output Vital Signs (last 24 hours): Temp Pulse Resp BP Pulse Ox 97.7 F 93 H 20 161/76 H 95 03/19/17 08:00 03/19/17 08:00 03/19/17 08:00 03/19/17 08:00 03/19/17 08:00 Intake and Output: 03/19/17 03/19/17 06:59 18:59 Intake Total 120 Balance 120 - Medications Medications: Current Medications Acetaminophen (Tylenol 325mg Tab) 650 mg PO Q6 PRN PRN Reason: moderate pain Last Admin: 03/18/17 21:20 Dose: 650 mg Enoxaparin Sodium (Lovenox) 40 mg SC DAILY [facility] Last Admin: 03/18/17 10:25 Dose: 40 mg Insulin Aspart (Novolog) 0 unit SC ACHS [facility] PRN Reason: Protocol Last Admin: 03/19/17 08:11 Dose: 1 unit Pantoprazole Sodium (Protonix Ec Tab) 40 mg PO DAILY [facility] Last Admin: 03/18/17 10:25 Dose: 40 mg - Labs Labs: 03/19/17 06:50 03/19/17 06:50 - Constitutional Appears: Non-toxic, No Acute Distress - Head Exam Head Exam: ATRAUMATIC, NORMAL INSPECTION, NORMOCEPHALIC - Eye Exam Pupil Exam: NORMAL ACCOMODATION - ENT Exam ENT Exam: Mucous Membranes Moist - Respiratory Exam Respiratory Exam: Clear to Ausculation Bilateral, NORMAL BREATHING PATTERN. absent: Prolonged Expiratory Phase, Rales, Rhonchi, Wheezes - Cardiovascular Exam Cardiovascular Exam: REGULAR RHYTHM, +S1, +S2 - GI/Abdominal Exam GI & Abdominal Exam: Soft, Normal Bowel Sounds. absent: Tenderness, Diminished Bowel Sounds, Hypoactive Bowel Sounds, Pulsatile Mass - Neurological Exam Neurological Exam: Alert, Awake, Oriented x3 - Psychiatric Exam Psychiatric exam: Normal Affect, Normal Mood - Skin Skin Exam: Dry, Intact, Normal Color, Warm Assessment and Plan - Assessment and Plan (Free Text) Assessment: Weakness NIHSS score [address] head negative for acute etiologies per report. Likely secondary to hypoglycemia episode. Pending TCU. Hypoglycemia Blood sugar was 40 on admission. One amp of D50 was given. Home med Janumet 50-1000mg on hold. D5 @ 60 ml/hr. +LE on UA UA on 03/17 is negative Urine culture. Prophylactic measure Protonix, Lovenox, SCD. <Ayaz Holder S - Last Filed: 05/29/17 14:59> Objective - Vital Signs/Intake and Output Vital Signs (last 24 hours): Temp Pulse Resp BP Pulse Ox 98.2 F 72 18 181/74 H 99 03/23/17 16:00 03/23/17 16:00 03/23/17 16:00 03/23/17 16:00 03/23/17 16:00 - Labs Labs: 03/23/17 12:05 03/23/17 12:05 Assessment and Plan (1) Abdominal pain Status: Acute (2) Arthritis Status: Acute (3) Arthritis of knee Status: Acute (4) Back pain Status: Acute (5) Burn of hand, second degree Status: Acute (6) Calcific tendinitis of right shoulder Status: Acute (7) Cervical strain Status: Acute (8) Costochondral chest pain Status: Acute (9) Degenerative arthritis Status: Acute (10) Degenerative disc disease, cervical Status: Acute (11) Dizziness Status: Acute (12) Fall Status: Acute (13) Fibroids Status: Acute (14) Headache Status: Acute (15) Hemorrhoids, external without complications Status: Acute (16) Hypoglycemia Status: Acute (17) Knee contusion Status: Acute (18) Left arm pain Status: Acute (19) Lower back pain Status: Acute (20) Mild diastolic dysfunction Status: Acute (21) Neck pain Status: Acute (22) Sciatic leg pain Status: Acute (23) Shoulder fracture, right Status: Acute (24) UTI (urinary tract infection) Status: Acute Attending/Attestation - Attestation I have personally seen and examined this patient.: Yes I have fully participated in the care of the patient.: Yes I have reviewed all pertinent clinical information, including history, physical exam and plan: Yes Notes (Text): Case seen and discussed with the staff and the resident management as agreed
[2017-03-19] MEDS: Pantoprazole 40 mg EC Tab PO SCH (11:45)
[2017-03-19] MEDS: Enoxaparin 40 mg Syringe SC SCH (11:45)
--- NOTE | 2017-03-19 13:16 | CP.PCM.PN ---
Subjective - Date & Time of Evaluation Date of Evaluation: 03/19/17 Time of Evaluation: 07:40 - Subjective Subjective: clinically same Objective - Vital Signs/Intake and Output Vital Signs (last 24 hours): Temp Pulse Resp BP Pulse Ox 97.7 F 93 H 20 161/76 H 95 03/19/17 08:00 03/19/17 08:00 03/19/17 08:00 03/19/17 08:00 03/19/17 08:00 Intake and Output: 03/19/17 03/19/17 06:59 18:59 Intake Total 120 Balance 120 - Medications Medications: Current Medications Acetaminophen (Tylenol 325mg Tab) 650 mg PO Q6 PRN PRN Reason: moderate pain Last Admin: 03/18/17 21:20 Dose: 650 mg Enoxaparin Sodium (Lovenox) 40 mg SC DAILY [facility] Last Admin: 03/19/17 11:45 Dose: 40 mg Insulin Aspart (Novolog) 0 unit SC ACHS [facility] PRN Reason: Protocol Last Admin: 03/19/17 11:45 Dose: 4 unit Pantoprazole Sodium (Protonix Ec Tab) 40 mg PO DAILY [facility] Last Admin: 03/19/17 11:45 Dose: 40 mg - Labs Labs: 03/19/17 06:50 03/19/17 06:50 - Constitutional Appears: Well - Head Exam Head Exam: ATRAUMATIC, NORMAL INSPECTION, NORMOCEPHALIC - Eye Exam Eye Exam: EOMI, Normal appearance, PERRL Pupil Exam: NORMAL ACCOMODATION, PERRL - ENT Exam ENT Exam: Mucous Membranes Moist, Normal Exam - Neck Exam Neck Exam: Full ROM, Normal Inspection. absent: Lymphadenopathy - Respiratory Exam Respiratory Exam: Decreased Breath Sounds - Cardiovascular Exam Cardiovascular Exam: REGULAR RHYTHM, +S1, +S2 - GI/Abdominal Exam GI & Abdominal Exam: Soft, Diminished Bowel Sounds - Rectal Exam Rectal Exam: Deferred Assessment and Plan - Assessment and Plan (Free Text) Plan: awaiting for rehab rowdy same bs better pt ot
[2017-03-20] MEDS: (Novolog) Insulin Aspart, Recombinant 100 u/ml 10 ml vial SC SCH ×4 (07:30→21:48)
[2017-03-20 08:10] LABS: CHLORIDE 101 mmol/L (98-107); POTASSIUM 4.2 mmol/L (3.6-5.2); SODIUM 139 mmol/L (132-148)
[2017-03-20 08:11] LABS: BASO % 0.5 % (0.0-2.0); EOS # 0.1 K/uL (0.0-0.7); EOS % 2.2 % (0.0-4.0); HEMATOCRIT 31.1 % (34.0-47.0); LYMPH # 1.5 K/uL (1.0-4.3); LYMPH % 26.4 % (20.0-40.0); MEAN CELL VOLUME 82.7 fL (81.0-99.0); MEAN CORPUSCULAR HEMOGLOBIN 27.6 pg (27.0-31.0); MEAN CORPUSCULAR HGB CONC 33.3 g/dL (33.0-37.0); MEAN PLATELET VOLUME 7.4 fL (7.2-11.7); MONO # 0.6 K/uL (0.0-0.8); MONO % 10.1 % (0.0-10.0); NRBC % 0.1 % (0.0-2.0); WHITE BLOOD COUNT 5.7 K/uL (4.8-10.8)
[2017-03-20 08:12] LABS: GFR AFRICAN-AMERICAN > 60
[2017-03-20 08:13] LABS: ALB/GLOB RATIO 1.1 (1.0-2.1); ALKALINE PHOSPHATASE 68 U/L (38-126); ALT/SGPT 13 U/L (9-52); AST/SGOT 17 U/L (14-36); BILIRUBIN,TOTAL 0.4 mg/dL (0.2-1.3); BLOOD UREA NITROGEN 18 mg/dL (7-17); CALCIUM 8.8 mg/dl (8.6-10.4); CARBON DIOXIDE 28 mmol/L (22-30); GLUCOSE,RANDOM 184 mg/dL (65-105); TOTAL PROTEIN 6.8 g/dL (6.3-8.3)
[2017-03-20] MEDS: Enoxaparin 40 mg Syringe SC SCH (09:33)
[2017-03-20] MEDS: Pantoprazole 40 mg EC Tab PO SCH (09:33)
--- NOTE | 2017-03-20 14:25 | CP.PCM.PN ---
Subjective - Date & Time of Evaluation Date of Evaluation: 03/20/17 Time of Evaluation: 08:20 - Subjective Subjective: clinically same Objective - Vital Signs/Intake and Output Vital Signs (last 24 hours): Temp Pulse Resp BP Pulse Ox 98.0 F 98 H 20 172/87 H 97 03/20/17 08:27 03/20/17 08:27 03/20/17 08:27 03/20/17 08:27 03/20/17 08:27 Intake and Output: 03/20/17 03/20/17 06:59 18:59 Intake Total 360 Balance 360 - Medications Medications: Current Medications Acetaminophen (Tylenol 325mg Tab) 650 mg PO Q6 PRN PRN Reason: moderate pain Last Admin: 03/19/17 22:13 Dose: 650 mg Enoxaparin Sodium (Lovenox) 40 mg SC DAILY [facility] Last Admin: 03/20/17 09:33 Dose: 40 mg Insulin Aspart (Novolog) 0 unit SC ACHS [facility] PRN Reason: Protocol Last Admin: 03/20/17 11:30 Dose: 3 unit Pantoprazole Sodium (Protonix Ec Tab) 40 mg PO DAILY [facility] Last Admin: 03/20/17 09:33 Dose: 40 mg - Labs Labs: 03/20/17 07:46 03/20/17 07:46 - Constitutional Appears: Well - Head Exam Head Exam: ATRAUMATIC, NORMAL INSPECTION, NORMOCEPHALIC - Eye Exam Eye Exam: EOMI, Normal appearance, PERRL Pupil Exam: NORMAL ACCOMODATION, PERRL - ENT Exam ENT Exam: Mucous Membranes Moist, Normal Exam - Neck Exam Neck Exam: Full ROM, Normal Inspection. absent: Lymphadenopathy - Respiratory Exam Respiratory Exam: Decreased Breath Sounds - Cardiovascular Exam Cardiovascular Exam: REGULAR RHYTHM, +S1, +S2 - GI/Abdominal Exam GI & Abdominal Exam: Soft, Diminished Bowel Sounds - Rectal Exam Rectal Exam: Deferred Assessment and Plan (1) Abdominal pain Status: Acute (2) Arthritis Status: Acute (3) Arthritis of knee Status: Acute (4) Back pain Status: Acute (5) Burn of hand, second degree Status: Acute (6) Calcific tendinitis of right shoulder Status: Acute (7) Cervical strain Status: Acute (8) Costochondral chest pain Status: Acute (9) Degenerative arthritis Status: Acute (10) Degenerative disc disease, cervical Status: Acute (11) Dizziness Status: Acute (12) Fall Status: Acute (13) Fibroids Status: Acute (14) Headache Status: Acute (15) Hemorrhoids, external without complications Status: Acute (16) Hypoglycemia Status: Acute (17) Knee contusion Status: Acute (18) Left arm pain Status: Acute (19) Lower back pain Status: Acute (20) Mild diastolic dysfunction Status: Acute (21) Neck pain Status: Acute (22) Sciatic leg pain Status: Acute (23) Shoulder fracture, right Status: Acute (24) UTI (urinary tract infection) Status: Acute - Assessment and Plan (Free Text) Plan: Continue IV fluid Lovenox NovoLog Protonix
[2017-03-21 07:21] LABS: BASO % 0.4 % (0.0-2.0); EOS # 0.1 K/uL (0.0-0.7); EOS % 2.2 % (0.0-4.0); HEMATOCRIT 30.7 % (34.0-47.0); LYMPH # 1.5 K/uL (1.0-4.3); LYMPH % 22.2 % (20.0-40.0); MEAN CELL VOLUME 82.1 fL (81.0-99.0); MEAN CORPUSCULAR HEMOGLOBIN 27.7 pg (27.0-31.0); MEAN CORPUSCULAR HGB CONC 33.8 g/dL (33.0-37.0); MONO # 0.6 K/uL (0.0-0.8); MONO % 9.5 % (0.0-10.0); RED CELL DISTRIBUTION WIDTH 13.9 % (11.5-14.5); WHITE BLOOD COUNT 6.6 K/uL (4.8-10.8)
[2017-03-21 07:51] LABS: CHLORIDE 101 mmol/L (98-107); SODIUM 139 mmol/L (132-148)
[2017-03-21 07:52] LABS: POTASSIUM 4.2 mmol/L (3.6-5.2)
[2017-03-21 07:54] LABS: ALB/GLOB RATIO 1.1 (1.0-2.1); ALKALINE PHOSPHATASE 67 U/L (38-126); AST/SGOT 17 U/L (14-36); BILIRUBIN,TOTAL 0.5 mg/dL (0.2-1.3); BLOOD UREA NITROGEN 20 mg/dL (7-17); CARBON DIOXIDE 28 mmol/L (22-30); GFR AFRICAN-AMERICAN > 60; TOTAL PROTEIN 6.8 g/dL (6.3-8.3)
[2017-03-21 07:55] LABS: ALT/SGPT 17 U/L (9-52); CALCIUM 8.8 mg/dl (8.6-10.4); GLUCOSE,RANDOM 190 mg/dL (65-105)
[2017-03-21] MEDS: (Novolog) Insulin Aspart, Recombinant 100 u/ml 10 ml vial SC SCH ×4 (08:08→21:39)
[2017-03-21] MEDS: Enoxaparin 40 mg Syringe SC SCH (09:26)
[2017-03-21] MEDS: Pantoprazole 40 mg EC Tab PO SCH (09:26)
--- NOTE | 2017-03-21 12:17 | CP.PCM.PN ---
Subjective - Date & Time of Evaluation Date of Evaluation: 03/21/17 Time of Evaluation: 07:30 - Subjective Subjective: clinically same Objective - Vital Signs/Intake and Output Vital Signs (last 24 hours): Temp Pulse Resp BP Pulse Ox 97.9 F 70 20 159/80 H 98 03/21/17 08:00 03/21/17 08:00 03/21/17 08:00 03/21/17 08:00 03/21/17 08:00 Intake and Output: 03/21/17 03/21/17 06:59 18:59 Intake Total 350 Balance 350 - Medications Medications: Current Medications Acetaminophen (Tylenol 325mg Tab) 650 mg PO Q6 PRN PRN Reason: moderate pain Last Admin: 03/20/17 19:56 Dose: 650 mg Enoxaparin Sodium (Lovenox) 40 mg SC DAILY [facility] Last Admin: 03/21/17 09:26 Dose: 40 mg Insulin Aspart (Novolog) 0 unit SC ACHS [facility] PRN Reason: Protocol Last Admin: 03/21/17 12:12 Dose: 2 unit Pantoprazole Sodium (Protonix Ec Tab) 40 mg PO DAILY [facility] Last Admin: 03/21/17 09:26 Dose: 40 mg - Labs Labs: 03/21/17 07:13 03/21/17 07:13 - Constitutional Appears: Well - Head Exam Head Exam: ATRAUMATIC, NORMAL INSPECTION, NORMOCEPHALIC - Eye Exam Eye Exam: EOMI, Normal appearance, PERRL Pupil Exam: NORMAL ACCOMODATION, PERRL - ENT Exam ENT Exam: Mucous Membranes Moist, Normal Exam - Neck Exam Neck Exam: Full ROM, Normal Inspection. absent: Lymphadenopathy - Respiratory Exam Respiratory Exam: Decreased Breath Sounds - Cardiovascular Exam Cardiovascular Exam: REGULAR RHYTHM, +S1, +S2 - GI/Abdominal Exam GI & Abdominal Exam: Soft, Diminished Bowel Sounds - Rectal Exam Rectal Exam: Deferred Assessment and Plan (1) Abdominal pain Status: Acute (2) Arthritis Status: Acute (3) Arthritis of knee Status: Acute (4) Back pain Status: Acute (5) Burn of hand, second degree Status: Acute (6) Calcific tendinitis of right shoulder Status: Acute (7) Cervical strain Status: Acute (8) Costochondral chest pain Status: Acute (9) Degenerative arthritis Status: Acute (10) Degenerative disc disease, cervical Status: Acute (11) Dizziness Status: Acute (12) Fall Status: Acute (13) Fibroids Status: Acute (14) Headache Status: Acute (15) Hemorrhoids, external without complications Status: Acute (16) Hypoglycemia Status: Acute (17) Knee contusion Status: Acute (18) Left arm pain Status: Acute (19) Lower back pain Status: Acute (20) Mild diastolic dysfunction Status: Acute (21) Neck pain Status: Acute (22) Sciatic leg pain Status: Acute (23) Shoulder fracture, right Status: Acute (24) UTI (urinary tract infection) Status: Acute - Assessment and Plan (Free Text) Plan: Lovenox NovoLog Protonix
[2017-03-22 06:28] LABS: CHLORIDE 100 mmol/L (98-107)
[2017-03-22 06:29] LABS: POTASSIUM 4.3 mmol/L (3.6-5.2); SODIUM 138 mmol/L (132-148)
[2017-03-22 06:31] LABS: ALB/GLOB RATIO 1.2 (1.0-2.1); ALKALINE PHOSPHATASE 80 U/L (38-126); AST/SGOT 16 U/L (14-36); BILIRUBIN,TOTAL 0.4 mg/dL (0.2-1.3); BLOOD UREA NITROGEN 22 mg/dL (7-17); CARBON DIOXIDE 28 mmol/L (22-30); GFR AFRICAN-AMERICAN > 60; GLUCOSE,RANDOM 230 mg/dL (65-105); TOTAL PROTEIN 6.8 g/dL (6.3-8.3)
[2017-03-22 06:32] LABS: ALT/SGPT 16 U/L (9-52); CALCIUM 8.7 mg/dl (8.6-10.4)
[2017-03-22 07:04] LABS: BASO % 0.4 % (0.0-2.0); EOS # 0.2 K/uL (0.0-0.7); EOS % 2.6 % (0.0-4.0); HEMATOCRIT 30.4 % (34.0-47.0); LYMPH # 1.6 K/uL (1.0-4.3); LYMPH % 22.6 % (20.0-40.0); MEAN CELL VOLUME 82.9 fL (81.0-99.0); MEAN CORPUSCULAR HEMOGLOBIN 28.1 pg (27.0-31.0); MEAN CORPUSCULAR HGB CONC 33.9 g/dL (33.0-37.0); MEAN PLATELET VOLUME 7.3 fL (7.2-11.7); MONO # 0.7 K/uL (0.0-0.8); MONO % 9.7 % (0.0-10.0)
[2017-03-22] MEDS: (Novolog) Insulin Aspart, Recombinant 100 u/ml 10 ml vial SC SCH ×4 (07:50→21:46)
[2017-03-22] MEDS: Pantoprazole 40 mg EC Tab PO SCH (11:16)
[2017-03-22] MEDS: Enoxaparin 40 mg Syringe SC SCH (11:16)
--- NOTE | 2017-03-22 18:07 | CP.PCM.PN ---
Subjective - Date & Time of Evaluation Date of Evaluation: 03/22/17 Time of Evaluation: 07:20 - Subjective Subjective: clinically same Objective - Vital Signs/Intake and Output Vital Signs (last 24 hours): Temp Pulse Resp BP Pulse Ox 97.5 F L 75 20 176/73 H 98 03/22/17 15:00 03/22/17 15:00 03/22/17 15:00 03/22/17 15:00 03/22/17 15:00 Intake and Output: 03/22/17 03/22/17 06:59 18:59 Intake Total 400 500 Balance 400 500 - Medications Medications: Current Medications Acetaminophen (Tylenol 325mg Tab) 650 mg PO Q6 PRN PRN Reason: moderate pain Last Admin: 03/22/17 14:06 Dose: 650 mg Enoxaparin Sodium (Lovenox) 40 mg SC DAILY [facility] Last Admin: 03/22/17 11:16 Dose: 40 mg Insulin Aspart (Novolog) 0 unit SC ACHS [facility] PRN Reason: Protocol Last Admin: 03/22/17 17:10 Dose: 3 unit Pantoprazole Sodium (Protonix Ec Tab) 40 mg PO DAILY [facility] Last Admin: 03/22/17 11:16 Dose: 40 mg - Labs Labs: 03/22/17 06:11 03/22/17 06:11 - Constitutional Appears: Well - Head Exam Head Exam: ATRAUMATIC, NORMAL INSPECTION, NORMOCEPHALIC - Eye Exam Eye Exam: EOMI, Normal appearance, PERRL Pupil Exam: NORMAL ACCOMODATION, PERRL - ENT Exam ENT Exam: Mucous Membranes Moist, Normal Exam - Neck Exam Neck Exam: Full ROM, Normal Inspection. absent: Lymphadenopathy - Respiratory Exam Respiratory Exam: Decreased Breath Sounds - Cardiovascular Exam Cardiovascular Exam: REGULAR RHYTHM, +S1, +S2 - GI/Abdominal Exam GI & Abdominal Exam: Soft, Diminished Bowel Sounds - Rectal Exam Rectal Exam: Deferred Assessment and Plan (1) Abdominal pain Status: Acute (2) Arthritis Status: Acute (3) Arthritis of knee Status: Acute (4) Back pain Status: Acute (5) Burn of hand, second degree Status: Acute (6) Calcific tendinitis of right shoulder Status: Acute (7) Cervical strain Status: Acute (8) Costochondral chest pain Status: Acute (9) Degenerative arthritis Status: Acute (10) Degenerative disc disease, cervical Status: Acute (11) Dizziness Status: Acute (12) Fall Status: Acute (13) Fibroids Status: Acute (14) Headache Status: Acute (15) Hemorrhoids, external without complications Status: Acute (16) Hypoglycemia Status: Acute (17) Knee contusion Status: Acute (18) Left arm pain Status: Acute (19) Lower back pain Status: Acute (20) Mild diastolic dysfunction Status: Acute (21) Neck pain Status: Acute (22) Sciatic leg pain Status: Acute (23) Shoulder fracture, right Status: Acute (24) UTI (urinary tract infection) Status: Acute - Assessment and Plan (Free Text) Plan: Lovenox NovoLog Protonix Tylenol
[2017-03-23 07:30] VITALS: TEMP 98.2
[2017-03-23] MEDS: (Novolog) Insulin Aspart, Recombinant 100 u/ml 10 ml vial SC SCH ×2 (07:40→11:42)
[2017-03-23] MEDS ORDERED: Pantoprazole 40 mg EC Tab PO SCH (10:00)
[2017-03-23] MEDS: Pantoprazole 40 mg EC Tab PO SCH (10:23)
[2017-03-23] MEDS: Enoxaparin 40 mg Syringe SC SCH (10:23)
[2017-03-23 12:15] LABS: BASO % 0.6 % (0.0-2.0); EOS # 0.1 K/uL (0.0-0.7); HEMATOCRIT 31.4 % (34.0-47.0); LYMPH # 1.5 K/uL (1.0-4.3); LYMPH % 21.4 % (20.0-40.0); MEAN CELL VOLUME 82.8 fL (81.0-99.0); MEAN CORPUSCULAR HEMOGLOBIN 27.7 pg (27.0-31.0); MEAN CORPUSCULAR HGB CONC 33.5 g/dL (33.0-37.0); MEAN PLATELET VOLUME 7.3 fL (7.2-11.7); MONO # 0.6 K/uL (0.0-0.8); MONO % 8.3 % (0.0-10.0); RED CELL DISTRIBUTION WIDTH 13.8 % (11.5-14.5); WHITE BLOOD COUNT 7.1 K/uL (4.8-10.8)
[2017-03-23 12:48] LABS: CHLORIDE 99 mmol/L (98-107)
[2017-03-23 12:49] LABS: POTASSIUM 4.3 mmol/L (3.6-5.2); SODIUM 136 mmol/L (132-148)
[2017-03-23 12:51] LABS: BILIRUBIN,TOTAL 0.4 mg/dL (0.2-1.3); CARBON DIOXIDE 28 mmol/L (22-30); GFR AFRICAN-AMERICAN > 60
[2017-03-23 12:52] LABS: ALB/GLOB RATIO 1.2 (1.0-2.1); ALKALINE PHOSPHATASE 85 U/L (38-126); ALT/SGPT 18 U/L (9-52); AST/SGOT 19 U/L (14-36); BLOOD UREA NITROGEN 21 mg/dL (7-17); CALCIUM 8.9 mg/dl (8.6-10.4); GLUCOSE,RANDOM 309 mg/dL (65-105)
--- NOTE | 2017-03-23 14:51 | CP.PCM.PN ---
Subjective - Date & Time of Evaluation Date of Evaluation: 03/23/17 Time of Evaluation: 14:49 - Subjective Subjective: 72 Y/O FEMALE SEEN AND EXAMINED BY DR Mychal DURAN TODAY PMHX DM II ADMITTED FOR BS [address] HEAD- NEGATIVE NIHSS SCORE 0 D50 1 [facility] D/C TODAY PER DR DURAN AAOX3, DENIES ANY CP,SOB, WEAKNESS, DIZZINESS METFORMIN 1000 MG PO DAILY F/U W/DR DURAN IN ONE WEEK AGREE W/POC, VERBALIZE UNDERSTANDING Objective - Vital Signs/Intake and Output Vital Signs (last 24 hours): Temp Pulse Resp BP Pulse Ox 98.2 F 80 20 159/69 H 97 03/23/17 07:27 03/23/17 07:27 03/23/17 07:27 03/23/17 07:27 03/23/17 07:27 Intake and Output: 03/23/17 03/23/17 06:59 18:59 Intake Total 700 Balance 700 - Medications Medications: Current Medications Acetaminophen (Tylenol 325mg Tab) 650 mg PO Q6 PRN PRN Reason: MILD PAIN 1-3 Enoxaparin Sodium (Lovenox) 40 mg SC DAILY [facility] Last Admin: 03/23/17 10:23 Dose: 40 mg Insulin Aspart (Novolog) 0 unit SC ACHS [facility] PRN Reason: Protocol Last Admin: 03/23/17 11:42 Dose: 4 unit Lidocaine (Lidoderm) 1 ea TD DAILY [facility] PRN Reason: MODERATE PAIN 4-7 Metformin HCl (Glucophage Xr) 1,000 mg PO DAILY [facility] Last Admin: 03/23/17 10:22 Dose: 1,000 mg Pantoprazole Sodium (Protonix Ec Tab) 40 mg PO DAILY [facility] Last Admin: 03/23/17 10:23 Dose: 40 mg Rosuvastatin Calcium (Crestor) 10 mg PO HS [facility] - Labs Labs: 03/23/17 12:05 03/23/17 12:05
--- NOTE | 2017-03-23 14:54 | CP.PCM.PN ---
Subjective - Date & Time of Evaluation Date of Evaluation: 03/23/17 Time of Evaluation: 13:00 - Subjective Subjective: Medicine Note- Dr. Holder's service Patient was seen and examined at bedside. Patient reports chronic knee pain. Patient also says she has mild chest pain. The last time she had this was 3 months ago. She says she would like to make sure it is not her heart. Patient is aware and understands she will be going to a TCU in a few days. Objective - Vital Signs/Intake and Output Vital Signs (last 24 hours): Temp Pulse Resp BP Pulse Ox 98.2 F 80 20 159/69 H 97 03/23/17 07:27 03/23/17 07:27 03/23/17 07:27 03/23/17 07:27 03/23/17 07:27 Intake and Output: 03/23/17 03/23/17 06:59 18:59 Intake Total 700 Balance 700 - Medications Medications: Current Medications Acetaminophen (Tylenol 325mg Tab) 650 mg PO Q6 PRN PRN Reason: MILD PAIN 1-3 Enoxaparin Sodium (Lovenox) 40 mg SC DAILY [facility] Last Admin: 03/23/17 10:23 Dose: 40 mg Insulin Aspart (Novolog) 0 unit SC ACHS [facility] PRN Reason: Protocol Last Admin: 03/23/17 11:42 Dose: 4 unit Lidocaine (Lidoderm) 1 ea TD DAILY PRN PRN Reason: MODERATE PAIN 4-7 Metformin HCl (Glucophage Xr) 1,000 mg PO DAILY [facility] Last Admin: 03/23/17 10:22 Dose: 1,000 mg Pantoprazole Sodium (Protonix Ec Tab) 40 mg PO DAILY [facility] Last Admin: 03/23/17 10:23 Dose: 40 mg Rosuvastatin Calcium (Crestor) 10 mg PO HS [facility] - Labs Labs: 03/23/17 12:05 03/23/17 12:05 - Constitutional Appears: Non-toxic, No Acute Distress - Head Exam Head Exam: NORMAL INSPECTION - Eye Exam Eye Exam: EOMI - ENT Exam ENT Exam: Mucous Membranes Moist - Respiratory Exam Respiratory Exam: Clear to Ausculation Bilateral, NORMAL BREATHING PATTERN. absent: Rhonchi, Wheezes - Cardiovascular Exam Cardiovascular Exam: REGULAR RHYTHM, +S1, +S2 - GI/Abdominal Exam GI & Abdominal Exam: Soft, Normal Bowel Sounds. absent: Tenderness Assessment and Plan - Assessment and Plan (Free Text) Assessment: Weakness NIHSS score [address] head negative for acute etiologies per report. Likely secondary to hypoglycemia episode. Pending [facility]. Hypoglycemia Blood sugar was 40 on admission. One amp of D50 was given. Home med Janumet 50-1000mg on hold. D5 @ 60 ml/hr. Chest Pain F/U [facility] and EKG +LE on UA UA on 03/17 is negative Urine culture. Prophylactic measure Protonix, Lovenox, SCD.
--- NOTE | 2017-03-23 15:28 | CP.PCM.PN ---
Subjective - Date & Time of Evaluation Date of Evaluation: 03/23/17 Time of Evaluation: 07:20 - Subjective Subjective: clinically same Objective - Vital Signs/Intake and Output Vital Signs (last 24 hours): Temp Pulse Resp BP Pulse Ox 98.2 F 80 20 159/69 H 97 03/23/17 07:27 03/23/17 07:27 03/23/17 07:27 03/23/17 07:27 03/23/17 07:27 Intake and Output: 03/23/17 03/23/17 06:59 18:59 Intake Total 700 Balance 700 - Medications Medications: Current Medications Acetaminophen (Tylenol 325mg Tab) 650 mg PO Q6 PRN PRN Reason: MILD PAIN 1-3 Enoxaparin Sodium (Lovenox) 40 mg SC DAILY [facility] Last Admin: 03/23/17 10:23 Dose: 40 mg Insulin Aspart (Novolog) 0 unit SC ACHS [facility] PRN Reason: Protocol Last Admin: 03/23/17 11:42 Dose: 4 unit Lidocaine (Lidoderm) 1 ea TD DAILY PRN PRN Reason: MODERATE PAIN 4-7 Metformin HCl (Glucophage Xr) 1,000 mg PO DAILY [facility] Last Admin: 03/23/17 10:22 Dose: 1,000 mg Pantoprazole Sodium (Protonix Ec Tab) 40 mg PO DAILY [facility] Last Admin: 03/23/17 10:23 Dose: 40 mg Rosuvastatin Calcium (Crestor) 10 mg PO HS [facility] - Labs Labs: 03/23/17 12:05 03/23/17 12:05 - Constitutional Appears: Well - Head Exam Head Exam: ATRAUMATIC, NORMAL INSPECTION, NORMOCEPHALIC - Eye Exam Eye Exam: EOMI, Normal appearance, PERRL Pupil Exam: NORMAL ACCOMODATION, PERRL - ENT Exam ENT Exam: Mucous Membranes Moist, Normal Exam - Neck Exam Neck Exam: Full ROM, Normal Inspection. absent: Lymphadenopathy - Respiratory Exam Respiratory Exam: Decreased Breath Sounds - Cardiovascular Exam Cardiovascular Exam: REGULAR RHYTHM, +S1, +S2 - GI/Abdominal Exam GI & Abdominal Exam: Soft, Diminished Bowel Sounds - Rectal Exam Rectal Exam: Deferred Assessment and Plan (1) Abdominal pain Status: Acute (2) Arthritis Status: Acute (3) Arthritis of knee Status: Acute (4) Back pain Status: Acute (5) Burn of hand, second degree Status: Acute (6) Calcific tendinitis of right shoulder Status: Acute (7) Cervical strain Status: Acute (8) Costochondral chest pain Status: Acute (9) Degenerative arthritis Status: Acute (10) Degenerative disc disease, cervical Status: Acute (11) Dizziness Status: Acute (12) Fall Status: Acute (13) Fibroids Status: Acute (14) Headache Status: Acute (15) Hemorrhoids, external without complications Status: Acute (16) Hypoglycemia Status: Acute (17) Knee contusion Status: Acute (18) Left arm pain Status: Acute (19) Lower back pain Status: Acute (20) Mild diastolic dysfunction Status: Acute (21) Neck pain Status: Acute (22) Sciatic leg pain Status: Acute (23) Shoulder fracture, right Status: Acute (24) UTI (urinary tract infection) Status: Acute - Assessment and Plan (Free Text) Plan: Patient to discharge to [facility] today Continue medication as prescribed Follow-up with me at office
[2017-03-23 17:33] VITALS: BP 181/74; PULSE 72; RESP 18; O2SAT 99
[2017-03-24] MEDS ORDERED: Lidocaine 5% Patch TD PRN (10:00)
== END 2017-03-23 17:00 | DRG 639 ==
LOC: C.ER 02:28 → SUPCPDRO 02:28 → C.9E 05:37 → C.5T 05:55 → OBSVTOIN 03-18 15:42 → C.3T 03-19 08:58
PROVIDERS: ADMIT Internal Medicine Nephrology; ATTEND Internal Medicine Nephrology
DX: E11.649 Type 2 diabetes mellitus with hypoglycemia without coma (principal); I10 Essential (primary) hypertension; J45.909 Unspecified asthma, uncomplicated; E78.00 Pure hypercholesterolemia, unspecified; M19.90 Unspecified osteoarthritis, unspecified site; F41.9 Anxiety disorder, unspecified; M25.569 Pain in unspecified knee; Z79.4 Long term (current) use of insulin; Z90.710 Acquired absence of both cervix and uterus